=== PATIENT | female | born 1960 | race Caucasian/White ===

== ENCOUNTER 2016-12-16 10:24 | Emergency (ER) | payer MEDICAID, OTHER ==
[~2016-12-16] VITALS: Ht 165.1 cm; Wt 80.7 kg
[2016-12-16] MEDS ORDERED: IBUPROFEN 800 MG TAB PO ONE (12:45)
[2016-12-16] MEDS ORDERED: HYDROcodone-ACET 7.5/325MG TAB PO ONE (12:45)
[2016-12-16 12:58] VITALS: BP 122/46
== END 2016-12-16 12:57 | disposition home or self-care (01) ==
LOC: ER 10:24
DX: S39.012A Strain of muscle, fascia and tendon of lower back, initial encounter (principal); E78.5 Hyperlipidemia, unspecified; I10 Essential (primary) hypertension; Z88.6 Allergy status to analgesic agent; V43.52XA Car driver injured in collision with other type car in traffic accident, initial encounter; Y93.89 Activity, other specified; Y99.8 Other external cause status; Y92.89 Other specified places as the place of occurrence of the external cause
CPT/HCPCS: 72100

== ENCOUNTER 2018-02-08 00:04 | Emergency (ER) | payer MEDICAID ==
[~2018-02-08] VITALS: Ht 165.1 cm; Wt 80.7 kg
[2018-02-08] MEDS ORDERED: KETOROLAC TROMETH 60MG/2ML VIAL IM ONE (06:30)
[2018-02-08 07:01] VITALS: BP 159/58
== END 2018-02-08 10:53 | disposition home or self-care (01) ==
LOC: ER 00:06
DX: M10.9 Gout, unspecified (principal); E78.5 Hyperlipidemia, unspecified; I10 Essential (primary) hypertension; Z88.6 Allergy status to analgesic agent
CPT/HCPCS: 36415; 84550; 96372; 99283; J1885